=== PATIENT | female | born 1980 | race Caucasian/White ===

== ENCOUNTER 2017-03-27 07:19 | Emergency (ER) | payer BC ==
[2017-03-27 07:32] VITALS: BP 124/76
--- NOTE | 2017-03-27 07:56 | UC ---
Complaint Female HPI - HPI Summary HPI Summary: WOKE UP THIS MORNING AND NOTICED FOUL SMELLING URINE AND HAS URETHRAL BURNING AND SPASMS. REPORTS A H/O URETHRAL STENOSIS AND PUDENDAL NEURALGIA. FOLLOWS WITH DR. TRACY. - History Of Current Complaint Chief Complaint: [facility] Stated Complaint: URINARY ISSUE Time Seen by Provider: 03/27/17 07:36 Hx Obtained From: Patient Hx Last Menstrual Period: 03/21/19 Onset/Duration: Sudden Onset, Lasting Hours, Still Present Severity Initially: Mild Severity Currently: Mild Pain Intensity: 2 Pain Scale Used: 0-10 Numeric Character: Burning Aggravating Factor(s): Urination Alleviating Factor(s): Nothing Associated Signs And Symptoms: Negative: Fever, Back Pain, Vaginal Discharge, Nausea, Vomiting(# Of Episodes =) - Allergies/Home Medications Allergies/Adverse Reactions: Allergies Allergy/AdvReac Type Severity Reaction Status Date / Time Azithromycin [From Zithromax] Allergy Unknown Unknown Verified 03/27/17 07:32 Reaction Details Cefaclor [From Ceclor] Allergy Unknown Unknown Verified 03/27/17 07:32 Reaction Details PMH/Surg Hx/FS Hx/Imm Hx Respiratory History: Asthma Other GI/ History: URETHRAL STENOSIS, PUDENDAL NEURALGIA - Surgical History Surgical History: Yes Surgery Procedure, Year, and Place: cystoscopies & dilatation ( many). 2011-[facility] - [facility]- [place]. age 18 months old- eye muscle surgery- right eye. bilateral ear myringotomy and adenoidectomy- age 5. leeps- office - Family History Known Family History: Positive: Diabetes - Social History Alcohol Use: Rare Substance Use Type: None Smoking Status (MU): Never Smoked Tobacco - Immunization History Most Recent Influenza Vaccination: fall 2016 Most Recent Tetanus Shot: 2009 Review of Systems Constitutional: Negative Respiratory: Negative Cardiovascular: Negative Gastrointestinal: Abdominal Pain Genitourinary: Other - URETHRAL BURNING All Other Systems Reviewed And Are Negative: Yes Physical Exam Triage Information Reviewed: Yes Appearance: Well-Appearing, No Pain Distress, Well-Nourished Vital Signs: Initial Vital Signs Temp 98.4 F 03/27/17 07:25 Pulse 86 03/27/17 07:25 Resp 16 03/27/17 07:25 BP 124/76 03/27/17 07:25 Pulse Ox 98 03/27/17 07:25 Vital Signs Reviewed: Yes Eyes: Positive: Conjunctiva Clear ENT: Positive: Hearing grossly normal Neck: Positive: Supple Respiratory: Positive: No respiratory distress, No accessory muscle use Cardiovascular: Positive: Pulses Normal Abdomen Description: Positive: Soft Musculoskeletal: Positive: No Edema Neurological: Positive: Alert Psychological: Positive: Age Appropriate Behavior Skin: Negative: rashes Diagnostics - Laboratory Diagnostic Studies Completed/Ordered: URINE DIP SP. GR. 1.015, 1+BLOOD. Complaint Female Dx - Course Course Of Treatment: URINE DIP NEGATIVE FOR UTI. PT STATES SHE HAS BEEN ADVISED BY HER UROLOGIST NOT TO TAKE ABX IF URINE IS NEGATIVE. WILL SEND FOR CX. PT TO CALL DR. TRACY TODAY. - Differential Dx/Diagnosis Provider Diagnoses: DYSURIA Discharge - Discharge Plan Condition: Stable Disposition: HOME Patient Education Materials: Dysuria (ED) Referrals: Molly Carson NP [Primary Care Provider] - If Needed Ramesh Tracy MD [Medical Doctor] - 2 Days Additional Instructions: URINE TEST POSITIVE FOR A SMALL AMOUNT OF BLOOD BUT OTHERWISE NEGATIVE. NO INDICATION OF UTI AT PRESENT. WILL SEND SAMPLE FOR CULTURE. STAY HYDRATED. FOLLOW-UP WITH DR. TRACY THIS WEEK.
--- NOTE | 2017-03-28 16:01 | UC ---
Progress - Progress Note Progress Note: CALL PATIENT UCX (+). WILL CALL IN MACROBID BID X 7 DAYS. IF WORSE ER.
== END 2017-03-27 07:59 | disposition home or self-care (01) ==
LOC: UCEAST 07:19
DX: R30.0 Dysuria (principal); J45.909 Unspecified asthma, uncomplicated; Z88.1 Allergy status to other antibiotic agents
CPT/HCPCS: 81003; 87077; 87086; 87186; 99211; G0463